=== PATIENT | female | born 1990 | race Native Hawaiian/Other Pacific Islander ===

== ENCOUNTER 2016-09-16 10:55 | Emergency (ER) | payer OTHER ==
[~2016-09-16] VITALS: Ht 160 cm; Wt 108.9 kg
[2016-09-16 12:42] LABS: POTASSIUM 4.4 mmol/L (3.6-5.2); SODIUM 137 mmol/L (136-145)
[2016-09-16 12:53] LABS: PLATELET COUNT 221 K/uL (152-353)
[2016-09-16 14:30] VITALS: TEMP 98
[2016-09-16 16:09] VITALS: BP 115/79
== END 2016-09-16 16:10 | disposition home or self-care (01) ==
LOC: ED 10:55
PROVIDERS: Specialist
DX: N73.8 Other specified female pelvic inflammatory diseases (principal); N83.292 Other ovarian cyst, left side; N89.8 Other specified noninflammatory disorders of vagina
CPT/HCPCS: 36415; 80053; 81000; 81025; 82150; 83690; 85027; 87491; 87591; 96365; 96375; 99284; J1885; J3490

== ENCOUNTER 2017-01-26 13:53 | Emergency (ER) | payer OTHER ==
[~2017-01-26] VITALS: Ht 160 cm; Wt 106.6 kg
[2017-01-26 15:14] VITALS: BP 139/79; TEMP 98.1
== END 2017-01-26 15:16 | disposition home or self-care (01) ==
LOC: ED 13:53
DX: M54.5 Low back pain (principal)
CPT/HCPCS: 36415; 81000; 96372; 99283; J1885; J2930

== ENCOUNTER 2017-05-23 14:13 | Outpatient (CLI) | payer OTHER | END 2017-05-23 15:30 | disposition home or self-care (01) | LOC: CT 14:13 | DX: R51 Headache (principal) ==

== ENCOUNTER 2017-11-25 12:14 | Emergency (ER) | payer OTHER ==
[~2017-11-25] VITALS: Ht 160 cm; Wt 93.4 kg
[2017-11-25 12:20] VITALS: TEMP 98.8
[2017-11-25 15:32] VITALS: BP 130/54
== END 2017-11-25 15:33 | disposition home or self-care (01) ==
LOC: ED 12:14
DX: T78.49XA Other allergy, initial encounter (principal)
CPT/HCPCS: 90715; 96360; 96374; 96375; 99284; J1100; J1200; J2780

== ENCOUNTER 2018-04-03 10:51 | Outpatient (CLI) | payer OTHER | END 2018-04-03 19:39 | disposition home or self-care (01) | LOC: US 10:51 | DX: N63.0 Unspecified lump in unspecified breast (principal) ==

== ENCOUNTER 2018-08-14 13:44 | Outpatient (CLI) | payer OTHER | END 2018-08-14 19:04 | disposition home or self-care (01) | LOC: RESP 13:44 | DX: G40.209 Localization-related (focal) (partial) symptomatic epilepsy and epileptic syndromes with complex partial seizures, not intractable, without status epilepticus (principal); G47.411 Narcolepsy with cataplexy ==

== ENCOUNTER 2019-11-15 13:02 | Outpatient (CLI) | payer OTHER ==
[2019-11-15 13:58] LABS: PLATELET COUNT 237 K/uL (152-353)
[2019-11-15 14:09] LABS: POTASSIUM 4.2 mmol/L (3.6-5.2)
== END 2019-11-15 19:39 | disposition home or self-care (01) ==
LOC: LABW 13:02
PROVIDERS: Internal Medicine
DX: I12.9 Hypertensive chronic kidney disease with stage 1 through stage 4 chronic kidney disease, or unspecified chronic kidney disease (principal); N18.3 Chronic kidney disease, stage 3 (moderate); R82.998 Other abnormal findings in urine
CPT/HCPCS: 36415; 80069; 81000; 82570; 83883; 84155; 84550; 85027; 87077; 87086; 87088; 87186

== ENCOUNTER 2020-07-17 15:33 | Outpatient (CLI) | payer OTHER | END 2020-07-17 22:05 | disposition home or self-care (01) | LOC: RAD 15:33 | PROVIDERS: ATTEND Nurse Practitioner Family | DX: M54.5 Low back pain (principal) ==

== ENCOUNTER 2020-08-09 15:55 | Emergency (ER) | payer OTHER ==
[~2020-08-09] VITALS: Ht 162.6 cm; Wt 95.3 kg
[2020-08-09 16:03] VITALS: TEMP 99
[2020-08-09 16:28] LABS: PLATELET COUNT 297 K/uL (152-353)
[2020-08-09 16:38] LABS: POTASSIUM 4.5 mmol/L (3.6-5.2)
[2020-08-09 18:06] VITALS: BP 144/82
== END 2020-08-09 18:05 | disposition home or self-care (01) ==
LOC: ED 15:55
PROVIDERS: Hospitalist
PROC: 0T9B70Z Drainage of Bladder with Drainage Device, Via Natural or Artificial Opening (ICD-10-PCS; principal; 2020-08-09)
DX: N13.39 Other hydronephrosis (principal); R11.2 Nausea with vomiting, unspecified
CPT/HCPCS: 36415; 51702; 80053; 81000; 81025; 82150; 83690; 85027; 96360; 96361; 96365; 96375; 96376; 99284; J0696; J1885; J2175; J2405

== ENCOUNTER 2021-01-16 14:18 | Outpatient (CLI) | payer OTHER | END 2021-01-16 23:59 | disposition home or self-care (01) | LOC: RAD 14:18 | PROVIDERS: ATTEND Nurse Practitioner Family | DX: M25.551 Pain in right hip (principal) ==

== ENCOUNTER 2022-02-15 03:08 | Emergency (ER) | payer OTHER ==
[~2022-02-15] VITALS: Ht 162.6 cm; Wt 117.9 kg
[2022-02-15 04:20] VITALS: BP 109/65; TEMP 98.9
== END 2022-02-15 04:20 | disposition home or self-care (01) ==
LOC: ED 03:08
DX: M79.674 Pain in right toe(s) (principal); Z98.890 Other specified postprocedural states
CPT/HCPCS: 99281

== ENCOUNTER 2022-03-19 20:31 | Emergency (ER) | payer OTHER ==
[~2022-03-19] VITALS: Ht 162.6 cm; Wt 95.3 kg
[2022-03-19 20:46] LABS: PLATELET COUNT 319 K/uL (152-353)
[2022-03-19 20:55] LABS: POTASSIUM 3.5 mmol/L (3.6-5.2)
[2022-03-19 21:58] VITALS: BP 133/72; TEMP 98.6
== END 2022-03-19 21:58 | disposition home or self-care (01) ==
LOC: ED 20:31
PROVIDERS: Emergency Medicine
DX: G40.909 Epilepsy, unspecified, not intractable, without status epilepticus (principal); Z53.29 Procedure and treatment not carried out because of patient's decision for other reasons
CPT/HCPCS: 36415; 80053; 80307; 80320; 81000; 81025; 82550; 84484; 85027; 93005; 99284

== ENCOUNTER 2022-04-15 20:52 | Emergency (ER) | payer OTHER ==
[~2022-04-15] VITALS: Ht 162.6 cm; Wt 95.3 kg
[2022-04-15 21:40] VITALS: BP 111/56; TEMP 96.5
== END 2022-04-15 21:40 | disposition left against medical advice (07) ==
LOC: ED 20:52
DX: R06.09 Other forms of dyspnea (principal); Z53.29 Procedure and treatment not carried out because of patient's decision for other reasons
CPT/HCPCS: 99281

== ENCOUNTER 2022-08-12 11:03 | Outpatient (CLI) | payer OTHER | END 2022-08-12 19:24 | disposition home or self-care (01) | LOC: RAD 11:03 | PROVIDERS: ATTEND Nurse Practitioner Family | DX: R56.9 Unspecified convulsions (principal); R60.0 Localized edema; R06.02 Shortness of breath; I10 Essential (primary) hypertension ==